=== PATIENT | male | born 1940 | race Caucasian/White ===

== ENCOUNTER 2018-12-05 15:48 | Inpatient (IN) | payer OTHER, MEDICAID ==
[~2018-12-05] VITALS: Ht 172.7 cm; Wt 68.4 kg
[2018-12-05 16:13] VITALS: BP_SYST 95
[2018-12-05 17:15] LABS: ANION GAP 11 (5-15); CALCIUM 11.6 mg/dL (8.4-11.0); CHLORIDE 94 mmol/L (98-107); CREATININE 5.45 mg/dL (0.55-1.30); GLUCOSE 141 mg/dL (70-99); POTASSIUM 3.8 mmol/L (3.5-5.1); SODIUM SERUM 127 mmol/L (136-145); UREA NITROGEN, BLOOD 77 mg/dL (8-21)
[2018-12-05 17:19] LABS: INR 1.6 (0.80-1.20); PROTHROMBIN TIME 16.1 SECS (9.5-12.5)
[2018-12-05 17:22] LABS: ALANINE AMINOTRANSFERASE 26 U/L (12-78); ALBUMIN 2.6 g/dL (3.4-4.8); ASPARTATE AMINOTRANSFERASE 21 U/L (10-37); TOTAL BILIRUBIN 0.5 mg/dL (0.0-1.0)
[2018-12-05 17:31] LABS: HEMATOCRIT 27.8 % (36-54); HEMOGLOBIN 9.7 g/dL (14.0-18.0); MEAN CORPUSCULAR HEMOGLOBIN 34 pg (27-31); MEAN CORPUSCULAR HGB CONC 35 % (32-36); MEAN CORPUSCULAR VOLUME 97 fL (79.0-98.0); RED BLOOD CELL COUNT(AUTO) 2.85 MIL/uL (4.2-6.2); RED CELL DISTRIBUTION WIDTH 13.2 % (9.0-15.0); WHITE BLOOD COUNT (AUTO) 8.3 K/uL (4.8-10.8)
[2018-12-05 17:38] LABS: LYMPHOCYTES % (AUTO) 4.5 % (20.5-51.5); NEUTROPHILS % (AUTO) 93.8 % (40.0-70.0); PLATELET COUNT (AUTO) 84 K/uL (130-430)
[2018-12-05 17:39] LABS: BASOPHILS % (AUTO) 0.2 % (0.0-2.0); LYMPHOCYTES # (AUTO) 0.4 K/uL (1.0-5.5); MONOCYTES # (AUTO) 0.1 K/uL (0.0-1.0); MONOCYTES % (AUTO) 1.5 % (1.7-9.3); NEUTROPHILS # (AUTO) 7.8 K/uL (1.8-7.7)
[2018-12-05] MEDS ORDERED: OMEP20CA10 PO (19:04)
[2018-12-05] MEDS ORDERED: XALEYE OP (19:05)
[2018-12-05] MEDS ORDERED: SACU1TAB PO (19:06)
[2018-12-05] MEDS ORDERED: LEVE500T9 PO (19:07)
[2018-12-05] MEDS ORDERED: TAMS-11 PO (19:10)
[2018-12-05] MEDS ORDERED: DUTA0.5C PO (19:10)
[2018-12-05] MEDS ORDERED: FINA5TAB3 PO (19:10)
[2018-12-05] MEDS ORDERED: ERGO500020 PO (19:11)
[2018-12-05] MEDS ORDERED: ONDANSETRON HCL 4 MG/2 ML VIAL IVP PRN (19:45)
[2018-12-05] MEDS ORDERED: ACETAMINOPHEN 325 MG TABLET PO PRN (19:45)
[2018-12-05] MEDS ORDERED: NACL 0.9% 1,000 ML IV ONE (19:45)
[2018-12-05 20:24] VITALS: BP_SYST 111
[2018-12-05] MEDS: PANTOPRAZOLE SODIUM 40 MG/VIAL (PROTONIX) IVP SCH (20:41)
[2018-12-06 00:13] VITALS: BP_SYST 100
[2018-12-06 06:29] LABS: ALANINE AMINOTRANSFERASE 23 U/L (12-78); ALBUMIN 2.2 g/dL (3.4-4.8); ANION GAP 8 (5-15); ASPARTATE AMINOTRANSFERASE 12 U/L (10-37); CALCIUM 10.5 mg/dL (8.4-11.0); CHLORIDE 96 mmol/L (98-107); CREATININE 5.43 mg/dL (0.55-1.30); GLUCOSE 140 mg/dL (70-99); POTASSIUM 3.5 mmol/L (3.5-5.1); SODIUM SERUM 126 mmol/L (136-145); TOTAL BILIRUBIN 0.3 mg/dL (0.0-1.0); UREA NITROGEN, BLOOD 82 mg/dL (8-21)
[2018-12-06 07:04] LABS: WHITE BLOOD COUNT (AUTO) 6.7 K/uL (4.8-10.8)
[2018-12-06 07:05] LABS: HEMATOCRIT 23.9 % (36-54); HEMOGLOBIN 8.2 g/dL (14.0-18.0); MEAN CORPUSCULAR HEMOGLOBIN 33 pg (27-31); MEAN CORPUSCULAR HGB CONC 34 % (32-36); MEAN CORPUSCULAR VOLUME 97 fL (79.0-98.0); NEUTROPHILS % (AUTO) 90.7 % (40.0-70.0); RED BLOOD CELL COUNT(AUTO) 2.47 MIL/uL (4.2-6.2); RED CELL DISTRIBUTION WIDTH 13.1 % (9.0-15.0)
[2018-12-06 07:06] LABS: LYMPHOCYTES # (AUTO) 0.4 K/uL (1.0-5.5); LYMPHOCYTES % (AUTO) 6.2 % (20.5-51.5); MONOCYTES # (AUTO) 0.2 K/uL (0.0-1.0); MONOCYTES % (AUTO) 3.1 % (1.7-9.3); NEUTROPHILS # (AUTO) 6.1 K/uL (1.8-7.7)
[2018-12-06 07:13] LABS: PLATELET COUNT (AUTO) 69 K/uL (130-430)
[2018-12-06] MEDS: PANTOPRAZOLE SODIUM 40 MG/VIAL (PROTONIX) IVP SCH ×2 (08:23→21:09)
[2018-12-06 08:24] VITALS: BP_SYST 98
[2018-12-06] MEDS ORDERED: NON-FORMULARY MEDICATION (Ergocalciferol (Vitamin D2) (Vitamin D2) 50,000 UNIT) PO SCH (11:00)
[2018-12-06 11:49] LABS: PHOSPHORUS 4.9 mg/dL (2.7-4.5); TOTAL IRON BIND. CAPACITY 130 ug/dL (250-450)
[2018-12-06 12:08] VITALS: BP_SYST 93
[2018-12-06] MEDS: NACL 0.9% 1,000 ML IV SCH ×2 (13:40→23:37)
[2018-12-06 16:33] VITALS: BP_SYST 92
[2018-12-06] MEDS ORDERED: BISACODYL 5 MG TABLET.DR (DULCOLAX) PO ONE (17:00)
[2018-12-06] MEDS ORDERED: GOLYTELY / COLYTE SOLUTION 4 LITERS PO ONE (18:00)
[2018-12-06 20:05] VITALS: BP_SYST 119
[2018-12-06] MEDS ORDERED: VALSARTAN PO SCH (21:00)
[2018-12-06] MEDS ORDERED: LEVETIRACETAM 500 MG PO SCH (21:00)
[2018-12-06] MEDS ORDERED: LATANOPROST 2.5 ML DROPS (XALATAN) OP SCH (21:00)
[2018-12-06] MEDS ORDERED: SACUBITRIL PO SCH (21:00)
[2018-12-06] MEDS: levETIRAcetam 500 MG TABLET PO SCH (21:10)
[2018-12-06 22:23] VITALS: BP_SYST 118
[2018-12-07 06:09] LABS: INR 1.3 (0.80-1.20); PROTHROMBIN TIME 12.9 SECS (9.5-12.5)
[2018-12-07 06:10] LABS: ALANINE AMINOTRANSFERASE 22 U/L (12-78); ALBUMIN 2.1 g/dL (3.4-4.8); ANION GAP 8 (5-15); ASPARTATE AMINOTRANSFERASE 13 U/L (10-37); CALCIUM 10.3 mg/dL (8.4-11.0); CHLORIDE 101 mmol/L (98-107); CREATININE 5.35 mg/dL (0.55-1.30); GLUCOSE 86 mg/dL (70-99); POTASSIUM 3.1 mmol/L (3.5-5.1); SODIUM SERUM 133 mmol/L (136-145); TOTAL BILIRUBIN 0.3 mg/dL (0.0-1.0); UREA NITROGEN, BLOOD 73 mg/dL (8-21)
[2018-12-07 07:30] LABS: WHITE BLOOD COUNT (AUTO) 5.6 K/uL (4.8-10.8)
[2018-12-07 07:31] LABS: HEMATOCRIT 28.6 % (36-54); MEAN CORPUSCULAR HEMOGLOBIN 34 pg (27-31); MEAN CORPUSCULAR HGB CONC 35 % (32-36); MEAN CORPUSCULAR VOLUME 97 fL (79.0-98.0); PLATELET COUNT (AUTO) 77 K/uL (130-430); RED BLOOD CELL COUNT(AUTO) 2.95 MIL/uL (4.2-6.2); RED CELL DISTRIBUTION WIDTH 13.4 % (9.0-15.0)
[2018-12-07] MEDS ORDERED: NS IV ONE (08:15)
[2018-12-07] MEDS ORDERED: PAMIDRONATE DISODIUM IV ONE (08:15)
[2018-12-07 08:32] LABS: NEUTROPHILS % (AUTO) 83.8 % (40.0-70.0)
[2018-12-07 08:33] LABS: EOSINOPHILS % (AUTO) 0.4 % (0.0-4.0); LYMPHOCYTES # (AUTO) 0.6 K/uL (1.0-5.5); MONOCYTES # (AUTO) 0.3 K/uL (0.0-1.0); MONOCYTES % (AUTO) 5.8 % (1.7-9.3); NEUTROPHILS # (AUTO) 4.7 K/uL (1.8-7.7)
[2018-12-07] MEDS ORDERED: TAMSULOSIN HCL 0.4 MG CAP PO SCH (09:00)
[2018-12-07] MEDS: PANTOPRAZOLE SODIUM 40 MG/VIAL (PROTONIX) IVP SCH (09:00)
[2018-12-07] MEDS ORDERED: NON-FORMULARY MEDICATION (Tamsulosin Hcl (Flomax) 0.4 MG) PO SCH (09:00)
[2018-12-07] MEDS: levETIRAcetam 500 MG TABLET PO SCH (09:00)
[2018-12-07] MEDS ORDERED: LACTULOSE 20 GM/30 ML UDC PO SCH (09:00)
[2018-12-07] MEDS ORDERED: NEPHROVITE, (FOLIC ACID/VITAMIN B COMP W-C 1 TAB) PO SCH (09:00)
[2018-12-07 09:50] VITALS: BP_SYST 107
[2018-12-07] MEDS: NACL 0.9% 1,000 ML IV SCH ×2 (10:18→16:45)
[2018-12-07 10:57] LABS: CORTISOL (SERUM) 0.6 ug/dL (.); FREE PSA 0.07 ng/mL; PROSTATE SPECIFIC AG TOTAL 0.5 ng/mL (0.0-4.0)
[2018-12-07 11:33] LABS: HEPATITIS C VIRUS AB <0.1 s/co ratio (0.0-0.9)
[2018-12-07 12:20] VITALS: BP_SYST 101
[2018-12-07] MEDS: MEPERIDINE HCL/PF 25 MG/ML DISP.SYRIN ONE ×4 (13:24→14:11)
[2018-12-07] MEDS ORDERED: MEPERIDINE HCL/PF 25 MG/ML DISP.SYRIN ONE (13:25)
[2018-12-07] MEDS: MIDAZOLAM HCL 5 MG/5 ML VIAL ONE ×3 (13:25→14:11)
[2018-12-07] MEDS ORDERED: SIMETHICONE 40 MG/0.6 ML ML ONE (13:25)
[2018-12-07] MEDS ORDERED: POTASSIUM CHLORIDE 40 MEQ, LIDOCAINE JECT 2% PF 100 MG 50 MG in NS 250 ML IV ONE (13:30)
[2018-12-07 14:24] LABS: PTH, INTACT 46 pg/mL (15-65)
[2018-12-07] MEDS ORDERED: HYDROCORTISONE ACETATE 1 SUPP (ANUSOL HC) RC ONE (14:45)
[2018-12-07 16:13] VITALS: BP_SYST 112
[2018-12-07 17:43] VITALS: BP_SYST 112
[2018-12-07] MEDS ORDERED: NEPH PO (18:03)
[2018-12-07] MEDS ORDERED: PHO667 PO (18:04)
[2018-12-07] MEDS ORDERED: FERR140T2 PO (18:04)
[2018-12-07] MEDS ORDERED: ANURH RC (18:05)
[2018-12-07] MEDS ORDERED: PRO40 PO (18:05)
[2018-12-07] MEDS ORDERED: HYDROCORTISONE ACETATE 1 SUPP (ANUSOL HC) RC SCH (21:00)
== END 2018-12-07 19:27 | disposition home or self-care (01) | DRG 377 ==
LOC: SED 15:48 → STU 19:32
PROVIDERS: ADMIT Internal Medicine; ATTEND Internal Medicine
PROC: 0DB78ZX Excision of Stomach, Pylorus, Via Natural or Artificial Opening Endoscopic, Diagnostic (ICD-10-PCS; principal; 2018-12-07 14:30)
PROC: 0DJD8ZZ Inspection of Lower Intestinal Tract, Via Natural or Artificial Opening Endoscopic (ICD-10-PCS; 2018-12-07 14:30)
DX: K57.31 Diverticulosis of large intestine without perforation or abscess with bleeding (principal); E43 Unspecified severe protein-calorie malnutrition; N17.9 Acute kidney failure, unspecified; C90.00 Multiple myeloma not having achieved remission; D68.9 Coagulation defect, unspecified; R64 Cachexia; K64.8 Other hemorrhoids; D50.0 Iron deficiency anemia secondary to blood loss (chronic); I12.9 Hypertensive chronic kidney disease with stage 1 through stage 4 chronic kidney disease, or unspecified chronic kidney disease; N18.9 Chronic kidney disease, unspecified; N40.0 Benign prostatic hyperplasia without lower urinary tract symptoms; K29.70 Gastritis, unspecified, without bleeding; K44.9 Diaphragmatic hernia without obstruction or gangrene; H40.9 Unspecified glaucoma; E88.09 Other disorders of plasma-protein metabolism, not elsewhere classified; D69.6 Thrombocytopenia, unspecified; Z79.899 Other long term (current) drug therapy; Z90.49 Acquired absence of other specified parts of digestive tract; Z68.22 Body mass index [BMI] 22.0-22.9, adult; Z85.46 Personal history of malignant neoplasm of prostate; Z85.89 Personal history of malignant neoplasm of other organs and systems
CPT/HCPCS: 36415; 43239; 45378; 76770; 80053; 82140-TC; 82533; 83540-TC; 83550-TC; 83930-TC; 83935-TC; 83970; 84100-TC; 84153; 85025; 85610-TC; 85730-TC; 86803; 87081; 87340; 93005; 99285; C9113; G0378; J2175; J2250; J2430; J3480; J7030; J7040; J7050

== ENCOUNTER 2019-03-22 13:24 | Inpatient (IN) | payer OTHER, MEDICAID ==
[2019-03-22] VITALS (8 sets, daily range): BP systolic 84–110
[~2019-03-22] VITALS: Ht 188 cm; Wt 76.2 kg
[~2019-03-22 13:24] MED LIST: ANURH RC; DUTA0.5C PO; ERGO500020 PO; FERR140T2 PO; FINA5TAB3 PO; LEVE500T9 PO; NEPH PO; OMEP20CA10 PO; PHO667 PO; PRO40 PO; SACU1TAB PO; TAMS-11 PO; XALEYE OP
[2019-03-22] MEDS ORDERED: NACL 0.9% 1,000 ML IV ONE ×2 (14:00→20:40)
[2019-03-22 14:17] LABS: BASOPHILS % (AUTO) 0.8 % (0.0-2.0); EOSINOPHILS # (AUTO) 0.1 K/uL (0.0-0.4); EOSINOPHILS % (AUTO) 1.2 % (0.0-4.0); LYMPHOCYTES # (AUTO) 1.2 K/uL (1.0-5.5); LYMPHOCYTES % (AUTO) 21.9 % (20.5-51.5); MEAN CORPUSCULAR HEMOGLOBIN 33 pg (27-31); MEAN CORPUSCULAR HGB CONC 33 % (32-36); MEAN CORPUSCULAR VOLUME 100 fL (79.0-98.0); MONOCYTES # (AUTO) 0.4 K/uL (0.0-1.0); MONOCYTES % (AUTO) 7.5 % (1.7-9.3); NEUTROPHILS # (AUTO) 3.8 K/uL (1.8-7.7); NEUTROPHILS % (AUTO) 68.6 % (40.0-70.0); PLATELET COUNT (AUTO) 101 K/uL (130-430); RED CELL DISTRIBUTION WIDTH 14.4 % (9.0-15.0); WHITE BLOOD COUNT (AUTO) 5.5 K/uL (4.8-10.8)
[2019-03-22] MEDS ORDERED: FERR-69 PO (14:22)
[2019-03-22] MEDS ORDERED: TRAZ-218 PO (14:22)
[2019-03-22] MEDS ORDERED: NEPH PO (14:22)
[2019-03-22 14:37] LABS: INR 1.3 (0.80-1.20); PROTHROMBIN TIME 13.1 SECS (9.5-12.5)
[2019-03-22 14:47] LABS: BILIRUBIN,URINE NEGATIVE (NEGATIVE); BLOOD, URINE 2+ (NEGATIVE); CLARITY/URINE HAZY (CLEAR); COLOR,URINE YELLOW (YELLOW); GLUCOSE,URINE NEGATIVE (NEGATIVE); KETONES,URINE NEGATIVE (NEGATIVE); LEUKOCYTE ESTERASE ,URINE 1+ (NEGATIVE); NITRITE, URINE NEGATIVE (NEGATIVE); PH,URINE 5.5 (5.0-8.0); PROTEIN URINE 2+ (NEGATIVE); UROBILINOGEN,URINE 0.2 (0.2-1.0)
[2019-03-22 14:56] LABS: ANION GAP 10 (5-15); CALCIUM 10.7 mg/dL (8.4-11.0); CHLORIDE 107 mmol/L (98-107); CREATININE 3.76 mg/dL (0.55-1.30); GLUCOSE 122 mg/dL (70-99); POTASSIUM 4.3 mmol/L (3.5-5.1); SODIUM SERUM 136 mmol/L (136-145); UREA NITROGEN, BLOOD 40 mg/dL (8-21)
[2019-03-22 15:01] LABS: ALANINE AMINOTRANSFERASE 16 U/L (12-78); ALBUMIN 2.5 g/dL (3.4-4.8); ASPARTATE AMINOTRANSFERASE 24 U/L (10-37); TOTAL BILIRUBIN 0.5 mg/dL (0.0-1.0)
[2019-03-22 15:05] LABS: BACTERIA,URINE MODERATE /HPF (None Seen); MUCUS,URINE 1+ /LPF (None Seen)
[2019-03-22] MEDS ORDERED: cefTRIAXone 1 GM IVPB PREMIX 50 ML IV ONE (15:30)
[2019-03-22] MEDS: NACL 0.9% 1,000 ML IV SCH (18:05)
[2019-03-22] MEDS ORDERED: NACL 0.9% 1,000 ML IV SCH (20:40)
[2019-03-22] MEDS ORDERED: ACETAMINOPHEN 650 MG/20.3 ML UDC PO PRN (20:45)
[2019-03-23] VITALS (24 sets, daily range): BP systolic 94–145
[2019-03-23] MEDS ORDERED: DIGOXIN 0.5 MG/2 ML AMP IVP ONE (01:00)
[2019-03-23 05:09] LABS: HEMATOCRIT 23.4 % (36-54); HEMOGLOBIN 7.8 g/dL (14.0-18.0); MEAN CORPUSCULAR HEMOGLOBIN 33 pg (27-31); MEAN CORPUSCULAR HGB CONC 34 % (32-36); MEAN CORPUSCULAR VOLUME 99 fL (79.0-98.0); PLATELET COUNT (AUTO) 83 K/uL (130-430); RED BLOOD CELL COUNT(AUTO) 2.36 MIL/uL (4.2-6.2); RED CELL DISTRIBUTION WIDTH 14.1 % (9.0-15.0); WHITE BLOOD COUNT (AUTO) 5.5 K/uL (4.8-10.8)
[2019-03-23 05:41] LABS: ALANINE AMINOTRANSFERASE 13 U/L (12-78); ANION GAP 13 (5-15); ASPARTATE AMINOTRANSFERASE 13 U/L (10-37); CALCIUM 9.7 mg/dL (8.4-11.0); CHLORIDE 108 mmol/L (98-107); CREATININE 3.78 mg/dL (0.55-1.30); GLUCOSE 105 mg/dL (70-99); POTASSIUM 4.2 mmol/L (3.5-5.1); SODIUM SERUM 140 mmol/L (136-145); TOTAL BILIRUBIN 0.3 mg/dL (0.0-1.0); UREA NITROGEN, BLOOD 38 mg/dL (8-21)
[2019-03-23 05:47] LABS: ATYPICAL LYMPHOCYTES % 0 % (0-0); BAND % (MANUAL) 3 % (0-6); BASOPHILS % (MANUAL) 2 % (0-2); EOSINOPHILS % (MANUAL) 2 % (0-7); LYMPHOCYTES % (MANUAL) 25 % (20-46); MONOCYTES % (MANUAL) 5 % (0-11)
[2019-03-23] MEDS: NACL 0.9% 1,000 ML IV SCH ×3 (08:08→22:24)
[2019-03-23] MEDS: cefTRIAXone 1 GM in D5W 50 ML IV SCH ×2 (08:36→09:09)
[2019-03-23] MEDS: DUTASTERIDE 0.5 MG CAPSULE (AVODART) PO SCH (08:36)
[2019-03-23] MEDS: PANTOPRAZOLE SODIUM 40 MG TAB PO SCH (08:36)
[2019-03-23] MEDS: DILTIAZEM HCL 125 MG in D5W 100 ML IV SCH ×2 (09:08→20:54)
[2019-03-23] MEDS ORDERED: DILTIAZEM HCL 125 MG/25 ML VIAL IV ONE ×2 (20:40)
[2019-03-23] MEDS: TAMSULOSIN HCL 0.4 MG CAP PO SCH (20:54)
[2019-03-23] MEDS: AMIODARONE HCL 200 MG TABLET PO SCH (20:55)
[2019-03-23] MEDS: HALOPERIDOL LACTATE 5 MG/ML VIAL IVP PRN (22:23)
[2019-03-24] VITALS (23 sets, daily range): BP systolic 93–147
[2019-03-24] MEDS: NACL 0.9% 1,000 ML IV SCH ×2 (05:24→15:49)
[2019-03-24 05:25] LABS: HEMOGLOBIN 8.5 g/dL (14.0-18.0); MEAN CORPUSCULAR HEMOGLOBIN 33 pg (27-31); MEAN CORPUSCULAR HGB CONC 33 % (32-36); MEAN CORPUSCULAR VOLUME 101 fL (79.0-98.0); PLATELET COUNT (AUTO) 77 K/uL (130-430); RED BLOOD CELL COUNT(AUTO) 2.59 MIL/uL (4.2-6.2); RED CELL DISTRIBUTION WIDTH 14.4 % (9.0-15.0); WHITE BLOOD COUNT (AUTO) 6.2 K/uL (4.8-10.8)
[2019-03-24 05:50] LABS: ALANINE AMINOTRANSFERASE 13 U/L (12-78); ALBUMIN 2.1 g/dL (3.4-4.8); ANION GAP 13 (5-15); ASPARTATE AMINOTRANSFERASE 16 U/L (10-37); ATYPICAL LYMPHOCYTES % 2 % (0-0); BAND % (MANUAL) 2 % (0-6); BASOPHILS % (MANUAL) 0 % (0-2); CALCIUM 9.4 mg/dL (8.4-11.0); CHLORIDE 110 mmol/L (98-107); CREATININE 4.15 mg/dL (0.55-1.30); EOSINOPHILS % (MANUAL) 0 % (0-7); GLUCOSE 134 mg/dL (70-99); LYMPHOCYTES % (MANUAL) 10 % (20-46); MONOCYTES % (MANUAL) 5 % (0-11); POTASSIUM 4.2 mmol/L (3.5-5.1); SODIUM SERUM 141 mmol/L (136-145); TOTAL BILIRUBIN 0.3 mg/dL (0.0-1.0); UREA NITROGEN, BLOOD 41 mg/dL (8-21)
[2019-03-24] MEDS: PANTOPRAZOLE SODIUM 40 MG TAB PO SCH (07:55)
[2019-03-24] MEDS: DUTASTERIDE 0.5 MG CAPSULE (AVODART) PO SCH (07:56)
[2019-03-24] MEDS: AMIODARONE HCL 200 MG TABLET PO SCH ×2 (07:56→21:34)
[2019-03-24] MEDS: HALOPERIDOL LACTATE 5 MG/ML VIAL IVP PRN ×2 (07:57→16:36)
[2019-03-24] MEDS ORDERED: HEPARIN SODIUM,PORCINE 5000 UNITS/ML VIAL ONE ×2 (14:45→20:53)
[2019-03-24] MEDS ORDERED: METOPROLOL TARTRATE 5 MG/5 ML VIAL ONE (19:00)
[2019-03-24] MEDS ORDERED: LORazepam 2 MG/ML VIAL ONE (20:38)
[2019-03-24] MEDS ORDERED: CARVEDILOL 12.5 MG TABLET (COREG) ONE (20:38)
[2019-03-24] MEDS ORDERED: HEPARIN SODIUM, PORCINE 10,000 UNITS/ 10 ML VIAL MC SCH (21:30)
[2019-03-24] MEDS: LORazepam 2 MG/ML VIAL IVP PRN (21:32)
[2019-03-24] MEDS: CARVEDILOL 6.25 MG TABLET (COREG) PO PRN (21:33)
[2019-03-24] MEDS: TAMSULOSIN HCL 0.4 MG CAP PO SCH (21:34)
[2019-03-25] VITALS (25 sets, daily range): BP systolic 92–150
[2019-03-25] MEDS: HALOPERIDOL LACTATE 5 MG/ML VIAL IVP PRN (00:37)
[2019-03-25] MEDS: LORazepam 2 MG/ML VIAL IVP PRN ×2 (04:46→14:21)
[2019-03-25] MEDS: NACL 0.9% 1,000 ML IV SCH (04:46)
[2019-03-25 06:44] LABS: HEMOGLOBIN 7.8 g/dL (14.0-18.0); MEAN CORPUSCULAR HEMOGLOBIN 33 pg (27-31); MEAN CORPUSCULAR HGB CONC 34 % (32-36); MEAN CORPUSCULAR VOLUME 98 fL (79.0-98.0); PLATELET COUNT (AUTO) 77 K/uL (130-430); RED BLOOD CELL COUNT(AUTO) 2.35 MIL/uL (4.2-6.2); RED CELL DISTRIBUTION WIDTH 14.3 % (9.0-15.0); WHITE BLOOD COUNT (AUTO) 5.4 K/uL (4.8-10.8)
[2019-03-25 06:45] LABS: INR 1.4 (0.80-1.20); PROTHROMBIN TIME 14.2 SECS (9.5-12.5)
[2019-03-25 06:46] LABS: ANION GAP 5 (5-15); CALCIUM 8.9 mg/dL (8.4-11.0); CHLORIDE 107 mmol/L (98-107); CREATININE 2.92 mg/dL (0.55-1.30); GLUCOSE 107 mg/dL (70-99); POTASSIUM 3.9 mmol/L (3.5-5.1); SODIUM SERUM 140 mmol/L (136-145); UREA NITROGEN, BLOOD 26 mg/dL (8-21)
[2019-03-25 06:51] LABS: ALANINE AMINOTRANSFERASE 14 U/L (12-78); ALBUMIN 1.9 g/dL (3.4-4.8); ASPARTATE AMINOTRANSFERASE 17 U/L (10-37); TOTAL BILIRUBIN 0.4 mg/dL (0.0-1.0)
[2019-03-25 09:16] LABS: ATYPICAL LYMPHOCYTES % 5 % (0-0); BAND % (MANUAL) 12 % (0-6); BASOPHILS % (MANUAL) 0 % (0-2); EOSINOPHILS % (MANUAL) 0 % (0-7); LYMPHOCYTES % (MANUAL) 14 % (20-46); MONOCYTES % (MANUAL) 3 % (0-11)
[2019-03-25] MEDS: cefTRIAXone 1 GM in D5W 50 ML IV SCH (09:55)
[2019-03-25] MEDS: DUTASTERIDE 0.5 MG CAPSULE (AVODART) PO SCH (09:56)
[2019-03-25] MEDS: PANTOPRAZOLE SODIUM 40 MG TAB PO SCH (09:56)
[2019-03-25] MEDS: AMIODARONE HCL 200 MG TABLET PO SCH ×2 (09:56→21:00)
[2019-03-25] MEDS: CARVEDILOL 6.25 MG TABLET (COREG) PO PRN (09:57)
[2019-03-25] MEDS: METOPROLOL TARTRATE 5 MG/5 ML VIAL IVP PRN (11:12)
[2019-03-25] MEDS ORDERED: methylPREDNISolone SOD SUCC/PF 62.5 MG/ML VIAL IVP ONE (12:30)
[2019-03-25] MEDS ORDERED: FUROSEMIDE 40 MG/4 ML VIAL IVP ONE ×2 (12:30→19:00)
[2019-03-25] MEDS ORDERED: IPRATROPIUM/ALBUTEROL SULFATE 3 ML AMPUL.NEB (DUONEB) INH ONE (12:30)
[2019-03-25] MEDS: IPRATROPIUM/ALBUTEROL SULFATE 3 ML AMPUL.NEB (DUONEB) INH SCH ×3 (15:27→23:00)
[2019-03-25] MEDS: QUEtiapine FUMARATE 25 MG TABLET PO SCH (18:55)
[2019-03-25] MEDS ORDERED: FUROSEMIDE 40 MG/4 ML VIAL IVP SCH (19:30)
[2019-03-25] MEDS: POTASSIUM CHLORIDE 20 MEQ TAB.PRT.SR PO SCH ×2 (19:30→19:39)
[2019-03-25] MEDS: TAMSULOSIN HCL 0.4 MG CAP PO SCH (21:00)
[2019-03-25] MEDS: methylPREDNISolone SOD SUCC/PF 62.5 MG/ML VIAL IVP SCH (21:20)
[2019-03-26] VITALS (24 sets, daily range): BP systolic 94–145
[2019-03-26] MEDS: METOPROLOL TARTRATE 5 MG/5 ML VIAL IVP PRN ×4 (02:13→17:53)
[2019-03-26] MEDS: IPRATROPIUM/ALBUTEROL SULFATE 3 ML AMPUL.NEB (DUONEB) INH SCH ×6 (02:40→23:02)
[2019-03-26] MEDS: POTASSIUM CHLORIDE 20 MEQ TAB.PRT.SR PO SCH (03:49)
[2019-03-26] MEDS: AMIODARONE HCL 200 MG TABLET PO SCH ×3 (03:51→20:32)
[2019-03-26] MEDS: TAMSULOSIN HCL 0.4 MG CAP PO SCH ×2 (03:52→20:31)
[2019-03-26] MEDS: CARVEDILOL 6.25 MG TABLET (COREG) PO PRN ×2 (03:53→13:19)
[2019-03-26 06:47] LABS: BASOPHILS % (AUTO) 0.1 % (0.0-2.0); HEMATOCRIT 28.6 % (36-54); HEMOGLOBIN 9.8 g/dL (14.0-18.0); LYMPHOCYTES # (AUTO) 0.5 K/uL (1.0-5.5); LYMPHOCYTES % (AUTO) 6.6 % (20.5-51.5); MEAN CORPUSCULAR HEMOGLOBIN 33 pg (27-31); MEAN CORPUSCULAR HGB CONC 34 % (32-36); MEAN CORPUSCULAR VOLUME 96 fL (79.0-98.0); MONOCYTES # (AUTO) 0.1 K/uL (0.0-1.0); MONOCYTES % (AUTO) 1.7 % (1.7-9.3); NEUTROPHILS # (AUTO) 6.8 K/uL (1.8-7.7); NEUTROPHILS % (AUTO) 91.6 % (40.0-70.0); PLATELET COUNT (AUTO) 97 K/uL (130-430); RED BLOOD CELL COUNT(AUTO) 2.98 MIL/uL (4.2-6.2); RED CELL DISTRIBUTION WIDTH 14.9 % (9.0-15.0); WHITE BLOOD COUNT (AUTO) 7.4 K/uL (4.8-10.8)
[2019-03-26 06:51] LABS: ALANINE AMINOTRANSFERASE 12 U/L (12-78); ALBUMIN 2.1 g/dL (3.4-4.8); ANION GAP 12 (5-15); ASPARTATE AMINOTRANSFERASE 16 U/L (10-37); CALCIUM 8.8 mg/dL (8.4-11.0); CHLORIDE 101 mmol/L (98-107); CREATININE 2.88 mg/dL (0.55-1.30); GLUCOSE 156 mg/dL (70-99); POTASSIUM 4.1 mmol/L (3.5-5.1); SODIUM SERUM 138 mmol/L (136-145); TOTAL BILIRUBIN 0.6 mg/dL (0.0-1.0); UREA NITROGEN, BLOOD 25 mg/dL (8-21)
[2019-03-26] MEDS: cefTRIAXone 1 GM in D5W 50 ML IV SCH (09:53)
[2019-03-26] MEDS: methylPREDNISolone SOD SUCC/PF 62.5 MG/ML VIAL IVP SCH ×2 (09:54→20:31)
[2019-03-26] MEDS: DUTASTERIDE 0.5 MG CAPSULE (AVODART) PO SCH (09:54)
[2019-03-26] MEDS: PANTOPRAZOLE SODIUM 40 MG TAB PO SCH (09:54)
[2019-03-26] MEDS: LORazepam 2 MG/ML VIAL IVP PRN ×2 (10:32→21:59)
[2019-03-26] MEDS: HALOPERIDOL LACTATE 5 MG/ML VIAL IVP PRN (14:06)
[2019-03-26] MEDS ORDERED: LEVOFLOXACIN 250 MG TABLET PO ONE (16:45)
[2019-03-26] MEDS ORDERED: LEVOFLOXACIN 250 MG TABLET PO SCH (16:45)
[2019-03-26] MEDS: QUEtiapine FUMARATE 25 MG TABLET PO SCH (17:52)
[2019-03-26] MEDS: FUROSEMIDE 40 MG/4 ML VIAL IVP SCH (20:33)
[2019-03-27] VITALS (13 sets, daily range): BP systolic 96–125
[2019-03-27] MEDS: HALOPERIDOL LACTATE 5 MG/ML VIAL IVP PRN ×3 (00:15→11:02)
[2019-03-27] MEDS: LORazepam 2 MG/ML VIAL IVP PRN ×2 (02:27→14:40)
[2019-03-27] MEDS: IPRATROPIUM/ALBUTEROL SULFATE 3 ML AMPUL.NEB (DUONEB) INH SCH ×6 (03:56→23:34)
[2019-03-27 05:02] LABS: BASOPHILS % (AUTO) 0.1 % (0.0-2.0); HEMATOCRIT 29.7 % (36-54); LYMPHOCYTES # (AUTO) 0.5 K/uL (1.0-5.5); LYMPHOCYTES % (AUTO) 6.2 % (20.5-51.5); MEAN CORPUSCULAR HEMOGLOBIN 33 pg (27-31); MEAN CORPUSCULAR HGB CONC 34 % (32-36); MEAN CORPUSCULAR VOLUME 97 fL (79.0-98.0); MONOCYTES # (AUTO) 0.2 K/uL (0.0-1.0); MONOCYTES % (AUTO) 2.8 % (1.7-9.3); NEUTROPHILS # (AUTO) 7.3 K/uL (1.8-7.7); PLATELET COUNT (AUTO) 81 K/uL (130-430); RED BLOOD CELL COUNT(AUTO) 3.07 MIL/uL (4.2-6.2); RED CELL DISTRIBUTION WIDTH 14.7 % (9.0-15.0)
[2019-03-27 05:17] LABS: ALANINE AMINOTRANSFERASE 17 U/L (12-78); ALBUMIN 2.2 g/dL (3.4-4.8); ANION GAP 8 (5-15); ASPARTATE AMINOTRANSFERASE 19 U/L (10-37); CALCIUM 8.9 mg/dL (8.4-11.0); CHLORIDE 104 mmol/L (98-107); CREATININE 4.24 mg/dL (0.55-1.30); GLUCOSE 167 mg/dL (70-99); POTASSIUM 4.5 mmol/L (3.5-5.1); SODIUM SERUM 138 mmol/L (136-145); TOTAL BILIRUBIN 0.4 mg/dL (0.0-1.0); UREA NITROGEN, BLOOD 46 mg/dL (8-21)
[2019-03-27 05:37] LABS: NEUTROPHILS % (AUTO) 90.9 % (40.0-70.0)
[2019-03-27 06:39] LABS: HEPATITIS A AB, IgM Negative (Negative); HEPATITIS B CORE AB, IgM Negative (Negative); HEPATITIS B SURFACE AG Negative (Negative)
[2019-03-27] MEDS: CARVEDILOL 6.25 MG TABLET (COREG) PO PRN (07:49)
[2019-03-27] MEDS: FUROSEMIDE 40 MG/4 ML VIAL IVP SCH ×2 (08:55→21:56)
[2019-03-27] MEDS: cefTRIAXone 1 GM in D5W 50 ML IV SCH (08:55)
[2019-03-27] MEDS: PANTOPRAZOLE SODIUM 40 MG TAB PO SCH (08:56)
[2019-03-27] MEDS: DUTASTERIDE 0.5 MG CAPSULE (AVODART) PO SCH (08:56)
[2019-03-27] MEDS: NS IV SCH (08:59)
[2019-03-27] MEDS: DEXAMETHASONE SOD PHOSPHATE IV SCH (08:59)
[2019-03-27] MEDS ORDERED: DEXAMETHASONE SOD PHOSPHATE 10 MG/ML VIAL IVP SCH (09:00)
[2019-03-27] MEDS: AMIODARONE HCL 200 MG TABLET PO SCH ×2 (09:15→21:28)
[2019-03-27] MEDS: QUEtiapine FUMARATE 25 MG TABLET PO SCH (17:33)
[2019-03-27] MEDS ORDERED: MORPHINE 2 MG/ML INJ. SYRINGE IVP PRN (19:00)
[2019-03-27] MEDS: TAMSULOSIN HCL 0.4 MG CAP PO SCH (21:28)
[2019-03-27] MEDS: METOPROLOL TARTRATE 5 MG/5 ML VIAL IVP PRN (22:14)
[2019-03-28] VITALS (17 sets, daily range): BP systolic 104–136
[2019-03-28] MEDS: CARVEDILOL 6.25 MG TABLET (COREG) PO PRN ×2 (00:24→09:55)
[2019-03-28] MEDS: IPRATROPIUM/ALBUTEROL SULFATE 3 ML AMPUL.NEB (DUONEB) INH SCH ×6 (04:19→23:07)
[2019-03-28] MEDS: METOPROLOL TARTRATE 5 MG/5 ML VIAL IVP PRN (06:00)
[2019-03-28] MEDS: PANTOPRAZOLE SODIUM 40 MG TAB PO SCH (08:02)
[2019-03-28] MEDS: AMIODARONE HCL 200 MG TABLET PO SCH ×2 (08:03→21:48)
[2019-03-28] MEDS: DUTASTERIDE 0.5 MG CAPSULE (AVODART) PO SCH (08:03)
[2019-03-28] MEDS: FUROSEMIDE 40 MG/4 ML VIAL IVP SCH ×2 (08:04→21:49)
[2019-03-28] MEDS: cefTRIAXone 1 GM in D5W 50 ML IV SCH (08:05)
[2019-03-28] MEDS: DEXAMETHASONE SOD PHOSPHATE IV SCH (09:55)
[2019-03-28] MEDS: NS IV SCH (09:55)
[2019-03-28 10:11] LABS: A/G RATIO 0.5 (0.7-1.7); ALBUMIN 2.9 g/dL (2.9-4.4); ALPHA-1-GLOBULIN 0.2 g/dL (0.0-0.4); ALPHA-2-GLOBULIN 0.5 g/dL (0.4-1.0); BETA GLOBULIN 0.8 g/dL (0.7-1.3); GAMMA GLOBULIN 4.6 g/dL (0.4-1.8); GLOBULIN, TOTAL 6.2 g/dL (2.2-3.9); M-SPIKE 4.3 g/dL (Not Observed)
[2019-03-28] MEDS: HALOPERIDOL LACTATE 5 MG/ML VIAL IVP PRN (13:23)
[2019-03-28] MEDS ORDERED: LEVOFLOXACIN 250 MG TABLET PO SCH (17:00)
[2019-03-28] MEDS: QUEtiapine FUMARATE 25 MG TABLET PO SCH (18:13)
[2019-03-28] MEDS: TAMSULOSIN HCL 0.4 MG CAP PO SCH (21:48)
[2019-03-29 00:20] VITALS: BP_SYST 102
[2019-03-29] MEDS: IPRATROPIUM/ALBUTEROL SULFATE 3 ML AMPUL.NEB (DUONEB) INH SCH ×6 (03:37→23:45)
[2019-03-29 06:57] LABS: BASOPHILS % (AUTO) 0.1 % (0.0-2.0); HEMATOCRIT 29.5 % (36-54); HEMOGLOBIN 9.9 g/dL (14.0-18.0); LYMPHOCYTES # (AUTO) 0.3 K/uL (1.0-5.5); LYMPHOCYTES % (AUTO) 3.5 % (20.5-51.5); MEAN CORPUSCULAR HEMOGLOBIN 32 pg (27-31); MEAN CORPUSCULAR HGB CONC 34 % (32-36); MEAN CORPUSCULAR VOLUME 97 fL (79.0-98.0); MONOCYTES # (AUTO) 0.3 K/uL (0.0-1.0); MONOCYTES % (AUTO) 3.8 % (1.7-9.3); NEUTROPHILS # (AUTO) 7.4 K/uL (1.8-7.7); NEUTROPHILS % (AUTO) 92.6 % (40.0-70.0); PLATELET COUNT (AUTO) 80 K/uL (130-430); RED BLOOD CELL COUNT(AUTO) 3.05 MIL/uL (4.2-6.2); RED CELL DISTRIBUTION WIDTH 14.8 % (9.0-15.0)
[2019-03-29 07:23] LABS: ALANINE AMINOTRANSFERASE 29 U/L (12-78); ALBUMIN 2.2 g/dL (3.4-4.8); ANION GAP 9 (5-15); ASPARTATE AMINOTRANSFERASE 24 U/L (10-37); CALCIUM 8.6 mg/dL (8.4-11.0); CHLORIDE 103 mmol/L (98-107); CREATININE 5.05 mg/dL (0.55-1.30); GLUCOSE 154 mg/dL (70-99); POTASSIUM 4.2 mmol/L (3.5-5.1); SODIUM SERUM 138 mmol/L (136-145); TOTAL BILIRUBIN 0.3 mg/dL (0.0-1.0); UREA NITROGEN, BLOOD 56 mg/dL (8-21)
[2019-03-29 08:06] VITALS: BP_SYST 90
[2019-03-29] MEDS: AMIODARONE HCL 200 MG TABLET PO SCH ×2 (09:00→22:08)
[2019-03-29] MEDS: FUROSEMIDE 40 MG/4 ML VIAL IVP SCH ×2 (09:00→21:00)
[2019-03-29] MEDS: DEXAMETHASONE SOD PHOSPHATE IV SCH (09:27)
[2019-03-29] MEDS: NS IV SCH (09:27)
[2019-03-29] MEDS: PANTOPRAZOLE SODIUM 40 MG TAB PO SCH (09:31)
[2019-03-29] MEDS: cefTRIAXone 1 GM in D5W 50 ML IV SCH (09:48)
[2019-03-29] MEDS: DUTASTERIDE 0.5 MG CAPSULE (AVODART) PO SCH (09:48)
[2019-03-29 12:00] VITALS: BP_SYST 99
[2019-03-29 17:04] VITALS: BP_SYST 100
[2019-03-29] MEDS: QUEtiapine FUMARATE 25 MG TABLET PO SCH (17:30)
[2019-03-29 20:00] VITALS: BP_SYST 102
[2019-03-29] MEDS: TAMSULOSIN HCL 0.4 MG CAP PO SCH (22:07)
[2019-03-30] VITALS: BP_SYST 117
[2019-03-30] MEDS: IPRATROPIUM/ALBUTEROL SULFATE 3 ML AMPUL.NEB (DUONEB) INH SCH ×6 (02:55→23:23)
[2019-03-30 08:00] VITALS: BP_SYST 106
[2019-03-30] MEDS: AMIODARONE HCL 200 MG TABLET PO SCH ×2 (09:00→21:00)
[2019-03-30] MEDS: DEXAMETHASONE SOD PHOSPHATE IV SCH (10:47)
[2019-03-30] MEDS: NS IV SCH (10:47)
[2019-03-30] MEDS: FUROSEMIDE 40 MG/4 ML VIAL IVP SCH ×2 (10:48→21:00)
[2019-03-30] MEDS: PANTOPRAZOLE SODIUM 40 MG TAB PO SCH (10:50)
[2019-03-30] MEDS: DUTASTERIDE 0.5 MG CAPSULE (AVODART) PO SCH (11:55)
[2019-03-30 12:00] VITALS: BP_SYST 108
[2019-03-30] MEDS ORDERED: CYCLOPHOSPHAMIDE 25 MG CAPSULE PO ONE (12:00)
[2019-03-30 16:15] VITALS: BP_SYST 94
[2019-03-30] MEDS: QUEtiapine FUMARATE 25 MG TABLET PO SCH (17:42)
[2019-03-30 20:00] VITALS: BP_SYST 99
[2019-03-30] MEDS: TAMSULOSIN HCL 0.4 MG CAP PO SCH (21:13)
[2019-03-31 00:42] VITALS: BP_SYST 102
[2019-03-31] MEDS: IPRATROPIUM/ALBUTEROL SULFATE 3 ML AMPUL.NEB (DUONEB) INH SCH ×5 (03:57→20:01)
[2019-03-31 08:00] VITALS: BP_SYST 112
[2019-03-31] MEDS: FUROSEMIDE 40 MG/4 ML VIAL IVP SCH (09:00)
[2019-03-31] MEDS: PANTOPRAZOLE SODIUM 40 MG TAB PO SCH (10:05)
[2019-03-31] MEDS: DUTASTERIDE 0.5 MG CAPSULE (AVODART) PO SCH (10:06)
[2019-03-31] MEDS: AMIODARONE HCL 200 MG TABLET PO SCH (10:06)
[2019-03-31] MEDS: DEXAMETHASONE SOD PHOSPHATE IV SCH (10:07)
[2019-03-31] MEDS: NS IV SCH (10:07)
[2019-03-31 11:30] VITALS: BP_SYST 105
[2019-03-31 12:41] VITALS: BP_SYST 105
[2019-03-31 14:41] VITALS: BP_SYST 105
[2019-03-31] MEDS ORDERED: HEPARIN SODIUM, PORCINE 10,000 UNITS/ 10 ML VIAL MC ONE (15:30)
[2019-03-31 16:42] VITALS: BP_SYST 101
== END 2019-03-31 21:22 | DRG 840 ==
LOC: SED 13:24 → SIC 17:09 → STU 03-28 14:08
PROVIDERS: ADMIT Internal Medicine Hospice and Palliative Medicine; ATTEND Internal Medicine Hospice and Palliative Medicine
PROC: 5A1D70Z Performance of Urinary Filtration, Intermittent, Less than 6 Hours Per Day (ICD-10-PCS; 2019-03-24)
PROC: 05HN33Z Insertion of Infusion Device into Left Internal Jugular Vein, Percutaneous Approach (ICD-10-PCS; 2019-03-24)
PROC: B544ZZA Ultrasonography of Left Jugular Veins, Guidance (ICD-10-PCS; 2019-03-24)
PROC: 05JYXZZ Inspection of Upper Vein, External Approach (ICD-10-PCS; 2019-03-24)
PROC: 5A1D70Z Performance of Urinary Filtration, Intermittent, Less than 6 Hours Per Day (ICD-10-PCS; 2019-03-25)
PROC: 30233N1 Transfusion of Nonautologous Red Blood Cells into Peripheral Vein, Percutaneous Approach (ICD-10-PCS; 2019-03-25)
PROC: 5A1D70Z Performance of Urinary Filtration, Intermittent, Less than 6 Hours Per Day (ICD-10-PCS; 2019-03-27)
PROC: 5A1D70Z Performance of Urinary Filtration, Intermittent, Less than 6 Hours Per Day (ICD-10-PCS; 2019-03-29)
PROC: 5A1D70Z Performance of Urinary Filtration, Intermittent, Less than 6 Hours Per Day (ICD-10-PCS; principal; 2019-03-31)
DX: C90.00 Multiple myeloma not having achieved remission (principal); J18.9 Pneumonia, unspecified organism; N17.0 Acute kidney failure with tubular necrosis; I50.41 Acute combined systolic (congestive) and diastolic (congestive) heart failure; J44.0 Chronic obstructive pulmonary disease with (acute) lower respiratory infection; N39.0 Urinary tract infection, site not specified; J44.1 Chronic obstructive pulmonary disease with (acute) exacerbation; R65.10 Systemic inflammatory response syndrome (SIRS) of non-infectious origin without acute organ dysfunction; R41.0 Disorientation, unspecified; D69.6 Thrombocytopenia, unspecified; D63.0 Anemia in neoplastic disease; H40.9 Unspecified glaucoma; I48.2 Chronic atrial fibrillation; I95.9 Hypotension, unspecified; N18.9 Chronic kidney disease, unspecified; N40.0 Benign prostatic hyperplasia without lower urinary tract symptoms; Z78.1 Physical restraint status; Z74.01 Bed confinement status; Z79.899 Other long term (current) drug therapy; Z92.21 Personal history of antineoplastic chemotherapy
CPT/HCPCS: 36415; 71045; 76770; 80053; 80074; 81000-TC; 83605; 83880; 84155; 84165; 84484; 85007; 85025; 85027; 85610-TC; 85730-TC; 86870; 86886; 86900; 86901; 86920; 87040-TC; 87081; 87086; 90935; 90937; 93005; 93306; 94640; 94760; 96361; 96365; 97116-GP; 97530-GP; 99285; C1751; G0378; J0696; J1100; J1160; J1630; J1644; J1940; J2060; J2930; J3490; J7030; J7050; J7060; J7620; J8530; P9021